=== PATIENT | male | born 1950 | race Caucasian/White ===

== ENCOUNTER → 2017-10-01 | Outpatient (CLI) | payer OTHER ==
[~2017-10-01] VITALS: Ht 162.6 cm; Wt 87.1 kg
[~2017-10-01] MED LIST: ASPIR 8181 M1 PO; ATORVASTATIN CA20 MG PO; ATORVASTATIN CA40 MG PO; DIOVAN HCT 11 TABLET PO; GUAIFENESIN WI120 M1 PO; LEVAQUIN500 MG PO; NEXIUM40 MG PO; PREDNISONE20 MG PO; VENTOLIN HFA18 GM IH
== END | disposition home or self-care (01) ==
LOC: AMB 08:11
DX: Z12.11 Encounter for screening for malignant neoplasm of colon (principal); Z86.010 Personal history of colon polyps; K63.5 Polyp of colon; K64.8 Other hemorrhoids; K57.30 Diverticulosis of large intestine without perforation or abscess without bleeding; D64.9 Anemia, unspecified; I10 Essential (primary) hypertension; E78.5 Hyperlipidemia, unspecified; R73.03 Prediabetes; G47.30 Sleep apnea, unspecified; K21.9 Gastro-esophageal reflux disease without esophagitis; Z79.82 Long term (current) use of aspirin; Z88.5 Allergy status to narcotic agent
CPT/HCPCS: 88305; 93005